=== PATIENT | male | born 1945 | race Caucasian/White ===

== ENCOUNTER → 2017-05-01 | Outpatient (CLI) | payer BC ==
[~2017-05-01] MED LIST: ASPCH81 PO; CHOL1000 PO; GADAVIST IV PRN; PSYL55.43 PO; TADA5TAB11 PO; WLC625 PO
--- NOTE | 2017-05-01 08:53 | DIAGNOSTIC IMAGING REPORT ---
MRI OF THE BRAIN AND IACS WITHOUT AND WITH IV CONTRAST CLINICAL HISTORY: Sensorineural hearing loss. Tinnitus. Right ear pain. Imbalance. Dizziness. COMPARISON STUDY: July 05, 2009 TECHNIQUE: MRI of the brain was performed from the vertex to the skull base utilizing various T1 and T2 weighted sequences. Following the IV administration of 9 mL of Gadavist contrast, additional enhanced images were obtained. FINDINGS: Sagittal T1, axial diffusion, proton density and T2 weighted axial, coronal FLAIR, and pre and post axial T1-weighted images were acquired. These were supplemented with post gadolinium coronal T1 weighted images. No intra or extra-axial mass lesions are visualized. Axial diffusion-weighted images reveal no evidence of acute or subacute infarction. There is no evidence of ventricular dilatation. Proton density T2-weighted and FLAIR images reveal no significant foci of increased T2 signal. There are no abnormal flow voids. There is no evidence of pathologic enhancement. The saphenous nerve complexes appear normal bilaterally. No cerebellopontine angle masses are evident. IMPRESSION: Normal MRI of the brain for age. Electronically signed by: Godfrey Kendall M.D. 05/01/2017 8:52 AM Dictated Date/Time: 05/01/2017 8:49 AM
== END | disposition home or self-care (01) ==
LOC: C.MRIBC 07:39
PROVIDERS: ATTEND Physician Assistant
DX: H93.19 Tinnitus, unspecified ear (principal); H90.3 Sensorineural hearing loss, bilateral; R42 Dizziness and giddiness

== ENCOUNTER → 2017-06-02 | Outpatient (CLI) | payer BC ==
[~2017-06-02] MED LIST changes: -GADAVIST IV PRN
[2017-06-02 13:04] LABS: BASO % 0.4 %; BASO ABS # 0.02 K/uL (0-0.2); EOS % 2.4 %; EOS ABS # 0.12 K/uL (0-0.5); HEMATOCRIT 44.2 % (42-52); HEMOGLOBIN 14.5 g/dL (14.0-18.0); IG# 0.01 K/uL (0.00-0.02); LYMPH % 26.4 %; LYMPH ABS # 1.34 K/uL (1.2-3.4); MEAN CELL VOLUME 95.5 fL (80-100); MEAN CORPUSCULAR HEMOGLOBIN 31.3 pg (25-34); MEAN CORPUSCULAR HGB CONC 32.8 g/dl (32-36); MEAN PLATELET VOLUME 11.3 fL (7.4-10.4); MONO % 10.2 %; MONO ABS # 0.52 K/uL (0.11-0.59); NEUT % 60.4 %; NEUT ABS # 3.07 K/uL (1.4-6.5); PLATELET COUNT 203 K/uL (130-400); RED CELL DISTRIBUTION WIDTH CV 13.7 % (11.5-14.5); RED CELL DISTRIBUTION WIDTH SD 47.4 fL (36.4-46.3); WHITE BLOOD COUNT 5.08 K/uL (4.8-10.8)
[2017-06-02 13:17] LABS: ALBUMIN 3.3 gm/dl (3.4-5.0); ALT/SGPT 24 U/L (12-78); AST/SGOT 17 U/L (15-37); BLOOD UREA NITROGEN 19 mg/dl (7-18); CALCIUM 8.9 mg/dl (8.5-10.1); CARBON DIOXIDE 31 mmol/L (21-32); CREATININE 1.06 mg/dl (0.60-1.40); GLUCOSE 81 mg/dl (70-99); LIPASE 203 U/L (73-393); POTASSIUM 4.2 mmol/L (3.5-5.1); SODIUM 140 mmol/L (136-145)
[2017-06-02 13:18] LABS: ALKALINE PHOSPHATASE 367 U/L (45-117)
== END | disposition home or self-care (01) ==
LOC: C.LAB1850 10:58
PROVIDERS: ATTEND Internal Medicine
DX: R10.9 Unspecified abdominal pain (principal)

== ENCOUNTER → 2017-06-03 | Outpatient (CLI) | payer BC | END | disposition home or self-care (01) | LOC: C.LAB 09:04 | PROVIDERS: ATTEND Internal Medicine | DX: R10.9 Unspecified abdominal pain (principal) ==

== ENCOUNTER → 2017-09-21 | Outpatient (CLI) | payer BC | END | disposition home or self-care (01) | LOC: C.LAB1850 15:55 | PROVIDERS: ATTEND Urology | DX: N20.0 Calculus of kidney (principal) ==

== ENCOUNTER → 2017-12-27 | Outpatient (CLI) | payer BC ==
--- NOTE | 2017-12-27 16:12 | DIAGNOSTIC IMAGING REPORT ---
R HAND MIN 3 VIEWS ROUTINE CLINICAL HISTORY: Right hand pain. First metacarpal injury. COMPARISON: None FINDINGS: Alignment of the right hand is anatomic. No acute fracture is identified. Carpal bones appear intact. There is mild joint space narrowing and osteophytosis within several articulations of the right hand. IMPRESSION: No acute fracture or dislocation within the right hand. Electronically signed by: Declan Aguero M.D. 12/27/2017 4:10 PM Dictated Date/Time: 12/27/2017 4:08 PM
== END | disposition home or self-care (01) ==
LOC: C.LAB1850 16:01
PROVIDERS: ATTEND Physician Assistant
DX: M79.641 Pain in right hand (principal)

== ENCOUNTER 2024-02-26 05:11 | Observation (INO) ==
--- NOTE | 2024-01-09 11:42 | PAT Medication Instructions ---
Medication Instructions Date of Service January 09, 2024 Home Medications psyllium husk (aspartame) 3.4 gram oral powder packet (Metamucil Fiber Singles) 1 packet PO QDL [id number]-hmewmre 36,000-114,000-180,000 unit capsule,delay rel (Creon) 1 cap PO TIDM calcium carbonate 600 mg PO QPM cholecalciferol (vitamin D3) 25 mcg (1,000 unit) capsule 2,000 unit PO QPM aspirin 81 mg tablet,delayed release (Adult Aspirin Regimen) 81 mg PO QAM vibegron 75 mg tablet (Gemtesa) 75 mg PO QPM tadalafil 5 mg tablet (Cialis) 5 mg PO DAILY MEDICATION INSTRUCTIONS: ASK your prescriber and surgeon aspirin 81 mg tablet,delayed release (Adult Aspirin Regimen) 81 mg PO QAM DO NOT take the morning of surgery psyllium husk (aspartame) 3.4 gram oral powder packet (Metamucil Fiber Singles) 1 packet PO QDL kkctgd-sqyumysy-ykvryzw 36,000-114,000-180,000 unit capsule,delay rel (Creon) 1 cap PO TIDM Take morning of surgery With a small sip of water, OTHERWISE NOTHING TO EAT OR DRINK AFTER MIDNIGHT: tadalafil 5 mg tablet (Cialis) 5 mg PO DAILY Take evening before surgery calcium carbonate 600 mg PO QPM cholecalciferol (vitamin D3) 25 mcg (1,000 unit) capsule 2,000 unit PO QPM bsrnyd-gctgtfwo-sgbewzf 36,000-114,000-180,000 unit capsule,delay rel (Creon) 1 cap PO TIDM vibegron 75 mg tablet (Gemtesa) 75 mg PO QPM Other Notes If you have any questions please call us at [phone] or [phone] or [phone] or [phone]
--- NOTE | 2024-01-21 10:33 | Anesthesiology Consultation ---
Date of Service January 21, 2024 Assessment & Plan (1) Encounter for pre-operative examination: - Infectious disease screening: Per assessment on 01/07/24: No known recent infectious disease contacts or current infectious disease symptoms. - Outpatient joint assessment: Pt currently scheduled for inpatient pathway. If surgeon requests review for outpatient joint pathway, patient is not recommended candidate for outpatient joint program from anesthesia standpoint based on available information. - Vascular surgery visit (08/29/23): "Patient has now had a secondary episode of superficial thrombosis phlebitis, although this is in the same area as the previous episode.. We did discuss with the patient that taking 81 mg of aspirin daily may be beneficial as a preventative method. He did state that he has upcoming right shoulder surgery and will have his arm in a sling for a number of weeks.. Due to this, we recommend that he consider a zippered compression stocking.. Patient was advised to call our office if he should develop significant pain and discomfort despite wearing his compression daily and we will be able to consider him for surgical intervention on his varicose veins" - Cardiology visit (08/30/23): "Palpitations: His palpitations have been recorded using a 1 week monitor and he did confirm that we do have recordings of his symptoms. They appear to be due to PAT or premature beats, neither of which is very concerning. We have no evidence that he has atrial fibrillation. I not would pursue further evaluation and I do not think treatment is necessary. If he needs treatment for this in the future (to control symptoms) we could use beta-blockers or calcium blockers but I would prefer not.. Chest pain: He has a quite atypical chest pain which is nonexertional (despite him being able to exert himself quite well at other times) and therefore I do not think evaluation for coronary artery disease is worthwhile. His echocardiogram and electrocardiogram are normal.. Dizziness: He does have intermittent dizziness which sounds orthostatic and appears to have been worsened by his prostate medications, which can occur with many of them. He is on no other medications to cause this. At the moment this does not seem to be much of an issue on his current regimen and I do not think we need to pursue evaluation. If it becomes more of an issue we could do a tilt test to document orthostasis but since he is feeling relatively well now I have not done that. I do not see any reason why he cannot undergo his planned urologic procedure without further testing.. Follow Up: As needed" - S/P TURP (09/11/23): LMA#4 iGel at [facility] - S/P Right shoulder arthroscopy (11/02/23): LMA#4 igel [place] [facility] [place] acceptable risk for surgery pending surgeon-ordered PCP ([facility] [place]03[place] and cardiology ([facility] [place]) preop evaluations. Chart Review Chart Review: Patient seen in Pre Admission Testing Teaching & Discussion Pre-Anesthesia Teaching/Discussion Notes: Instructed NPO after midnight before surgery,except medications with 15 cc of water. Medication instructions provided according to the PAT guidelines. History Surgery Operation Date: 02/26/24 10:05 Proposed Procedures p Left Total Knee Arthroplasty - Lenny Bhavik Claros MD Height/Weight Height: 6 ft 4 in Weight: 83.9 kg Allergies Allergy/AdvReac Type Severity Reaction Status Date / Time ciprofloxacin Allergy Severe Tremors Verified 01/07/24 11:45 lactose Allergy Intermediate Diarrhea Verified 01/07/24 11:45 alfuzosin AdvReac Severe syncope Verified 01/07/24 11:45 Medications Home Medications Medication Instructions Recorded Confirmed Last Taken psyllium husk (aspartame) 3.4 gram 1 packet PO QDL ##0 12/21/15 01/07/24 11/01/23 oral powder packet (Metamucil Fiber Singles) [id number]-idpdooug-[id number] 1 cap PO TIDM 05/11/19 01/07/24 11/01/23 36,000-114,000-180,000 unit capsule,delay rel (Creon) calcium carbonate 600 mg PO QPM 03/17/22 01/07/24 11/01/23 cholecalciferol (vitamin D3) 25 2,000 unit PO QPM #0 tabs 10/19/22 01/07/24 mcg (1,000 unit) capsule aspirin 81 mg tablet,delayed 81 mg PO QAM preventative 08/30/23 01/07/24 11/01/23 release (Adult Aspirin Regimen) vibegron 75 mg tablet (Gemtesa) 75 mg PO QPM 01/01/24 01/07/24 Unknown tadalafil 5 mg tablet (Cialis) 5 mg PO HS 01/07/24 01/21/24 Unknown Past Medical History Medical History (Updated 01/18/24 @ 10:15 by Jessie Parker) Alkaline phosphatase elevation Chronic, since approximately age 21 BPH (benign prostatic hyperplasia) Hearing deficit History of jaundice as a child History of kidney stones passed on own Pancreatic insufficiency Follows with Dr. Adam Hull [facility] Sleep apnea No device Superficial thrombosis of left lower extremity Wears compression stockings Follows with [facility] vascular Reason for ASA 81mg Exercise / Class Metabolic Activity II 4-5 Yardwork/Stairs/Walk up hill Past Family History Family History Mother Myocardial infarction Father Myocardial infarction Hypertension Brother Asthma Other Heart disease No family history of adverse response to anesthesia Denies family history of Ovarian cancer Prostate cancer Breast cancer Colorectal cancer Past Surgical History Surgical History (Updated 01/18/24 @ 10:15 by Jessie Parker) H/O hammer toe correction bilateral, done with bunionectomy surgery History of anal fistulotomy [place]2 [facility] [place] History of arthroscopy Left knee x2 Meniscus Tear History of arthroscopy of right shoulder Right shoulder arthroscopy (11/02/23): [place] [facility] [place] of bunionectomy bilateral History of cataract surgery Bilateral History of colonoscopy Nausea and vomiting after administration of anesthetic agent S/P cholecystectomy S/P TURP (08/2023) S/P vasectomy Status post replacement of right shoulder joint Past Anesthesia History No Hx of Anesthesia Complications and No Family Hx of Anesthesia Complications History of PONV No Hx of Motion Sickness and History of PONV (Remote hx) Social History Smoking Status: Never smoker Do You Dip or Chew Tobacco: No Hx Alcohol Use: No Alcohol type: wine alcohol intake frequency: a few times a month Hx Substance Use: No substance use type: does not use Review of Systems Patient denies chest pain, shortness of breath, dyspnea on exertion, fever, chills, cough, wheezing, palpitations. Physical Exam Vital Signs BP 139/80 P 64 TEMP 97.6 SP02 100%RA RESP 16 Physical Full cervical extension range of motion. Full TMJ range of motion. TMD III finger breaths Mallampati Score I Dentition: intact, upper front left bridge Lungs: clear throughout to auscultation Cardiac: regular rate and rhythm, no murmurs noted Spine: normal Carotid arteries: negative bruit Extremities: no LE edema Lab Results Anesthesia Preop Results Results Anesthesia Widget: WBC 6.12 K/ul (4.8-10.8) 01/21/24 Hgb 14.0 g/dl (14.0-18.0) 01/21/24 Hct 43.8 % (42.0-52.0) 01/21/24 Plt 203 K/uL (130-400) 01/21/24 Na 142 mmol/L (136-145) 01/21/24 K 4.5 mmol/L (3.5-5.1) 01/21/24 Cl 105 mmol/L (98-107) 01/21/24 CO2 34 mmol/L (21-32) H 01/21/24 BUN 20 mg/dl (6-23) 01/21/24 Creat 0.92 mg/dl (0.6-1.4) 01/21/24 Glucose Level 96 mg/dl (70-99(Fasting)) 01/21/24 PT 10.0 Seconds (9.0-12.0) 01/21/24 PTT 24 Seconds (21-31) 01/21/24 INR 0.9 (0.9-1.1) 01/21/24 Urine Color Yellow 01/21/24 Urine Appearance Clear (Clear) 01/21/24 Urine pH 6.0 (4.5-7.5) 01/21/24 Urine Specific [place] 1.014 (1.000-1.030) 01/21/24 Urine Protein Negative (Negative) 01/21/24 Urine Glucose (UA) Negative (Negative) 01/21/24 Urine Ketones Negative (Negative) 01/21/24 Urine Blood Negative (Negative) 01/21/24 Urine Nitrite Negative (Negative) 01/21/24 Urine Bilirubin Negative (Negative) 01/21/24 Urine Urobilinogen Negative (Negative) 01/21/24 Urine Leukocyte Esterase Negative (Negative) 01/21/24 Blood Type A Positive 01/21/24 Antibody Screen NEGATIVE 01/21/24 Testing Electrocardiogram Date: 08/30/23 Findings: + NSR @ (75) Chest X-Ray Date: 08/02/23 FINDINGS: Lung volumes are normal. There is no consolidation to suggest pneumonia. Symmetric biapical densities favor scarring. There is no pneumothorax or pleural effusion. Cardiac size is normal. Mediastinal contours are normal. There is no evidence for pulmonary edema. IMPRESSION: No acute cardiopulmonary findings. Echocardiogram Date: 06/27/23 EF 55 to 60%. No regional wall motion abnormality. Borderline concentric LVH. No significant valvular disease.
[2024-02-26] MEDS: LR 500ML BOLUS, THEN 15ML/HR IV SCH (05:52)
[2024-02-26] MEDS: LR 15ML/HR IV SCH (05:54)
[2024-02-26] MEDS: LR 60ML/HR IV SCH (05:54)
[2024-02-26] MEDS: ACETAMINOPHEN 500 MG TAB PO SCH ×2 (06:00→15:38)
[2024-02-26] MEDS: Scopolamine 1 MG TDSY TD SCH (06:00)
[2024-02-26] MEDS: CeleBREX 200 MG CAP PO SCH (06:01)
[2024-02-26] MEDS ORDERED: ROPIVACAINE 0.5% 5 MG/ML 30 ML VIAL ONE (06:19)
[2024-02-26] MEDS ORDERED: BUPIVACAINE 0.5 % 5 MG/1 ML PF 10ML VIAL ONE (06:19)
[2024-02-26] MEDS ORDERED: MIDAZOLAM HCL 1 MG/ML 2ML VIAL ONE (06:25)
[2024-02-26] MEDS ORDERED: PROPOFOL IV EMULSION 10 MG/ML 20 ML VIAL IV ONE ×4 (06:25→07:51)
--- NOTE | 2024-02-26 06:34 | History & Physical Bridge Note ---
Date of Service February 26, 2024 History & Physical Bridge Note I have examined the patient, reviewed the History & Physical and in the interval since the performance of the History & Physical I have noted the following changes of clinical significance: no changes noted
[2024-02-26] MEDS ORDERED: fentaNYL citrate PF 100 MCG/2 ML VIAL IV PRN (06:43)
[2024-02-26] MEDS ORDERED: ePHEDrine sulfate 50 MG/ML AMP IV PRN (06:43)
[2024-02-26] MEDS ORDERED: HYDROmorphone INJ 1 MG/ML SYRINGE IV PRN (06:43)
[2024-02-26] MEDS ORDERED: ONDANSETRON INJ 2 MG/ML 2 ML VIAL IV PRN (06:43)
[2024-02-26] MEDS ORDERED: ATROPINE SULFATE 0.1 MG/ML 10ML SYR IV PRN (06:43)
[2024-02-26] MEDS: TRANEXAMIC ACID 1,000 MG **IV Pre-op IV SCH (06:48)
[2024-02-26] MEDS ORDERED: fentaNYL citrate PF 100 MCG/2 ML VIAL ONE (07:18)
[2024-02-26] MEDS: ceFAZolin 2000MG 2,000 MG/15 ML SYR IV SCH ×2 (07:25→16:49)
[2024-02-26] MEDS: ROPIV 0.5% 246mg, Ketorolac 30mg, EPINEPHrine 0.5mg in NSS INFIL SCH (07:41)
[2024-02-26] MEDS: ORTHO JOINT ANESTHETIC ONE (07:41)
[2024-02-26] MEDS: TRANEXAMIC ACID 1,000 MG **IV Intra-op IV SCH (08:51)
[2024-02-26] MEDS ORDERED: DEXAMETHASONE SOD INJ 4 MG/ML VIAL ONE (09:16)
--- NOTE | 2024-02-26 09:19 | Operative Report ---
Post Operative Report Pre & Post Diagnosis Operation Date: 02/26/24 07:00 Pre-Op Diagnosis: Left Knee Osteoarthritis Post-Op Diagnosis: Left Knee Osteoarthritis I identified the patient and participated in the time-out.: Yes Procedure Operation Date: 02/26/24 07:00 Actual Procedures p [Left] Total knee replacement, imageless computer assisted navigation (Left) - Lenny Claros MD Surgeon Lenny Clarso MD Ab Initio Etl Developer Margaret Hurtado PA-C Estimated Blood Loss 50 Findings See Below Examined Under Anesthesia: ROM -- There was 5 degrees to 125 degrees of flexion Ligamentous examination -- revealed stable Elier, posterior drawer, varus and valgus stress at 5 and 30 degrees. Outerbridge Grade IV changes of Medial compartment with wrgy-jf-hieo with erosion of the medial tibial plateau, grade III changes Patellofemoral compartment, and grade II changes lateral compartment with marginal osteophytes. Fluids 1200 cc Specimens left knee contents Anesthesia Type MAC Spinal Regional Complications none Indications This is a 78-year-old male who has clinical and radiographic findings consistent with osteoarthritis of the a left knee. I recommended that a left total knee replacement be performed. The patient understands the risks of surgery, which include but not limited to: bleeding, infection, re-operation, damage to nerves and arteries, continued knee pain, knee stiffness, DVT, and . The patient understands all these instructions and explanations, all his questions have been satisfactorily addressed and the patient has elected to proceed. Informed consent was signed. Description of Procedure IMPLANTS: 1. Femur: Triathlon #8 Left PS. 2. Tibia: Triathlon #7 Harrell. 3. Insert: Triathlon #7 x 11 mm PS X3 poly. 4. Patella: Triathlon A38 x 11 mm X3 poly. 5.Palacos cement. Margaret Hurtado PA-C is assisting with positioning, retracting, and closure due to fellow not available. Procedure: The patient was taken to the Operating Room and placed in the supine position after spinal and adductor canal nerve block was administered. My initials and a multidisciplinary time-out were used to identify the left leg as the correct operative limb. A tourniquet was placed high in the thigh. Prior to the incision, 2 grams of intravenous Ancef were given. One g of TXA was given pre- operatively and another after the tourniquet was released. The left leg was then prepped and draped in a standard sterile fashion. An Esmarch was used to exsanguinate the leg and the tourniquet was inflated to 250 mmHg. The planned mid-line 20 cm incision was created exposing the extensor mechanism. The medial parapatellar arthrotomy was made and the patella was everted. The patella was addressed first. It was prepared by reaming from 27 mm down to 16 mm. An A38 button was found to fit best. The peg holes were made in the standard fashion. The femur was addressed next and using computer assisted OrthoAlign with 3 degrees of flexion and 0 degrees of valgus, removing 10 mm in the standard fashion for the distal cut. The cut was made and the 4-in-1 cutting block for a size 8 femur was placed. These cuts and the cuts to place the box were made in the standard fashion. Our attention was then drawn to the tibia cut with using imageless computer assisted OrthoAlign, taking 2 mm from the medial low side. There was sufficient extension and flexion gap to fit a 11 mm spacer. A #7 Tibial baseplate fit well. A trial with a 11 mm spacer showed excellent stability in both flexion and extension, with good ligament balance, and thumbs free patellar tracking. Range of motion of 0-130 degrees. The tibial baseplate was prepped for the keel and stem. All components were removed. 90 ml of total knee cocktail were injected into the soft tissues and periosteum. All surfaces were copiously irrigated prior to placement of the components. The femoral component followed by Tibial baseplate were cemented in place and a 11mm trial placed. Next, the patellar button was placed using the same cement. Once the cement had cured, the range of motion and stability were unchanged. The 11 mm X3 poly was placed. Again, the range of motion and stability were unchanged. The tourniquet was deflated. Hemostasis was obtained. Another 1 g of TXA was given. The extensor mechanism was closed with 1-0 Vicryl and 0 Stratafix with the knee bent approximately 60 degrees in a standard fashion. The peritenon and deep fascia was closed with 2-0 Vicryl. The subcutaneous layer was closed with 3-0 Vicryl. The skin was closed with Zipline and shield. The limb was cleaned and dried. 4x4 dressing was placed over top followed by ABDs, sterile Webril, and a foot to thigh Dominic bandage. The patient was then transferred to the Recovery Room in stable condition. The sponge and needle counts were correct. POST-OP INSTRUCTIONS: The patient will be WBAT. The patient will be admitted to the hospital. Complete 24-hour course antibiotics. Labs will be obtained during the stay. DVT prophylaxis will included aspirin for 6 weeks, TEDs, and mechanical foot pumps. The dressing will be changed postop day #2-3 and covered with a Silverlon dressing. I attest to the content of the Intraoperative Record and any orders documented therein. Any exceptions are noted below.
--- NOTE | 2024-02-26 09:19 | Post Operative Brief Note ---
Immediate Post Op Note Date of Surgery February 26, 2024 Pre & Post Diagnosis Operation Date: 02/26/24 07:00 Pre-Op Diagnosis: Left Knee Osteoarthritis Post-Op Diagnosis: Left Knee Osteoarthritis I identified the patient and participated in the time-out.: Yes Procedure Operation Date: 02/26/24 07:00 Actual Procedures p Left Total Knee Arthroplasty(Left) - Lenny Claros MD Surgeon Lenny Claros MD Test Fixture Designer Margaret Hurtado PA-C Estimated Blood Loss 50 Findings Consistent with Post-Op Diagnosis Fluids 1200 cc Specimens left knee contents Anesthesia Type MAC Spinal Regional Complications none
--- NOTE | 2024-02-26 10:23 | XRay Report ---
XR knee LT 1 or 2V routine CLINICAL HISTORY: Postoperative evaluation COMPARISON: Left knee radiographs November 22, 2021. FINDINGS: Alignment of the total left knee arthroplasty is anatomic. There is no periprosthetic frac ture or unexpected radiopaque foreign body. IMPRESSION: Expected findings following total left knee arthroplasty. ACT 112: Negative or not required by law. Electronically signed by: Declan Aguero M.D. 02/26/2024 10:21 AM
[2024-02-26] MEDS ORDERED: TAMSULOSIN HCL 0.4 MG CAP PO PRN (10:32)
[2024-02-26] MEDS ORDERED: NALOXONE HCL 0.4 MG/1 ML VIAL/CARP IV PRN (10:32)
[2024-02-26] MEDS ORDERED: METOCLOPRAMIDE HCL INJ 5 MG/ML 2 ML VIAL IV PRN (10:32)
[2024-02-26] MEDS ORDERED: MAGNESIUM HYDROXIDE SUSP 30 ML UDC PO PRN (10:32)
[2024-02-26] MEDS ORDERED: bisacodyL 10 MG SUPP PR PRN (10:32)
[2024-02-26] MEDS: PANCREAZE (LIPASE 10,500U) CAP PO SCH (11:34)
[2024-02-26] MEDS: ONDANSETRON INJ 2 MG/ML 2 ML VIAL IV PRN (11:34)
[2024-02-26] MEDS: PSYLLIUM or GUAR GUM FIBER 4GM PACKET PO SCH (11:34)
[2024-02-26] MEDS: SODIUM CHLORIDE 0.9% 1,000 ML IV SCH (11:34)
--- NOTE | 2024-02-26 11:45 | Anesthesiology Progress Note ---
Date of Service February 26, 2024 Anesthesia Post Procedure Vital Signs Vital Signs: Temp Pulse Pulse Resp BP Pulse Ox O2 Del Method 02/26/24 11:25 36.5 C 57 L 16 108/66 99 Room Air 02/26/24 10:55 36.3 C L 62 20 113/70 98 Room Air 02/26/24 10:25 Room Air 02/26/24 10:25 37.5 C 62 20 116/76 98 Room Air 02/26/24 10:15 36.4 C L 64 19 108/64 100 Room Air 02/26/24 10:00 66 20 111/68 98 Room Air 02/26/24 09:50 62 19 110/62 96 Room Air 02/26/24 09:40 58 L 19 110/68 97 Room Air 02/26/24 09:32 36.3 C L 62 15 109/68 100 Room Air 02/26/24 05:36 36.8 C 80 18 146/92 H 98 Room Air Transfer of Care Handoff Completed per policy Notes Mental Status: alert / awake / arousable and participated in evaluation Patient Amnestic to Procedure: Yes Nausea / Vomiting: adequately controlled Pain: adequately controlled Airway Patency, RR, SpO2: stable & adequate BP & HR: stable & adequate Hydration State: stable & adequate Neuraxial Anesthesia: was administered and sensory block is resolving Anesthetic Complications: no major complications apparent and Pt Satisfied with anesthetic care
--- NOTE | 2024-02-26 12:35 | Orthopedic Progress Note ---
Date of Service February 26, 2024 Assessment & Plan (1) Left knee DJD: Plan: POD #0 s/p L TKA, doing as well as expected. Resume diet. WBAT with walker, once the spinal wears off. OOB to chair. Continue pain control. Check labs tomorrow. DVT prophylaxis: TEDs 3 weeks, foot pumps while in hospital, ASA 81 mg BID for 6 weeks. PT/OT. Complete Abx. D/C planning. Dressing to be changed POD 2-3 to Silverlon type dressing. Present on Admission?: Yes Admission and Anticipated Discharge Date Admission Date: February 26, 2024 Subjective Feeling ok Physical Exam Physical Exam: LLE: Block is still in affect. No sensation to light touch, unable to wiggle toes or ankle. Calf is soft and non-tender. Dressing is clean, dry, intact. Results & Data Vital Signs (Past 12 Hours) Vital Signs Temp Pulse Pulse Resp BP Pulse Ox O2 Del Method 02/26/24 11:25 36.5 C 57 L 16 108/66 99 Room Air 02/26/24 10:55 36.3 C L 62 20 113/70 98 Room Air 02/26/24 10:25 Room Air 02/26/24 10:25 37.5 C 62 20 116/76 98 Room Air 02/26/24 10:15 36.4 C L 64 19 108/64 100 Room Air 02/26/24 10:00 66 20 111/68 98 Room Air 02/26/24 09:50 62 19 110/62 96 Room Air 02/26/24 09:40 58 L 19 110/68 97 Room Air 02/26/24 09:32 36.3 C L 62 15 109/68 100 Room Air 02/26/24 05:36 36.8 C 80 18 146/92 H 98 Room Air Diagnostic Findings XR knee LT 1 or 2V routine CLINICAL HISTORY: Postoperative evaluation COMPARISON: Left knee radiographs November 22, 2021. FINDINGS: Alignment of the total left knee arthroplasty is anatomic. There is no periprosthetic fracture or unexpected radiopaque foreign body. IMPRESSION: Expected findings following total left knee arthroplasty. ACT 112: Negative or not required by law. Electronically signed by: Declan Aguero M.D. 02/26/2024 10:21 AM (1) Left knee DJD Osteoarthritis type: primary Qualified Code(s): M17.12 - Unilateral primary osteoarthritis, left knee
[2024-02-26] MEDS: Scopolamine CHECK PATCH PLACEMENT SCH (16:01)
[2024-02-26] MEDS: ASCORBIC ACID 500 MG TAB PO SCH (16:47)
[2024-02-26] MEDS: FERROUS GLUCONATE 324 MG TAB PO SCH (16:48)
[2024-02-26] MEDS: VIBEGRON 75 MG TAB PO SCH (20:05)
[2024-02-26] MEDS: CHOLECALCIFEROL 25 MCG (1000 UNITS) TAB PO SCH (20:05)
[2024-02-26] MEDS: CALCIUM CARBONATE 1250MG TAB PO SCH (20:05)
[2024-02-26] MEDS: DOCUSATE SODIUM 100 MG CAP PO SCH (20:07)
[2024-02-26] MEDS: oxyCODONE HCL IR 5 MG TAB (IMMEDIATE RELEASE) PO PRN (21:41)
[2024-02-27] MEDS: HYDROmorphone INJ 0.5 MG/0.5 ML SYR IV PRN (03:13)
[2024-02-27] MEDS: diphenhydrAMINE Capsule 25 MG CAP PO PRN (05:36)
[2024-02-27 07:10] LABS: Hematocrit (blood only) 36.4 % (42.0-52.0); Hemoglobin 11.8 g/dl (14.0-18.0); Mean Corpuscular Hemoglobin 29.7 pg (25.0-34.0); Mean Corpuscular Hgb Conc 32.4 g/dL (32.0-36.0); Mean Corpuscular Volume 91.7 fL (80.0-100.0); Mean Platelet Volume 10.7 fL (9.4-12.4); Platelet Count 167 K/uL (130-400); RDW Coefficient of Variation 13.8 % (11.5-14.5); RDW Standard Deviation 46.4 fL (36.4-46.3); Red Blood Count 3.97 M/uL (4.70-6.10); White Blood Count 7.95 K/ul (4.8-10.8)
[2024-02-27 07:28] LABS: BUN Creatinine Ratio 15.4 (10-20); Calcium 8.1 mg/dl (8.6-10.3); Creatinine Clr Calc Pharmacy 79.7 ml/min; Potassium 4.5 mmol/L (3.5-5.1)
[2024-02-27] MEDS: ASPIRIN 81 MG ECTAB PO SCH (08:01)
[2024-02-27] MEDS: MULTIVITAMIN TAB PO SCH (08:01)
[2024-02-27 08:14] VITALS: BP 134/78; RESP 20; TEMP 98.6; O2SAT 98
--- NOTE | 2024-02-27 11:29 | Discharge Summary ---
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 Claros on February 26, 2024. His s urgery was performed with spinal anesthesia, peripheral nerve block and IV sedation. He was given 2 g of IV Ancef which was continued for 24 hours postoperatively. He was given 1 g of IV TXA preoperatively and 1 g of IV TXA intraoperatively for bleeding prophylaxis. X-rays performed in the recovery room shows a stable left knee prosthesis without any evidence of hardware failure or fracture. He was allowed out of bed, weight-bear as tolerated on the left lower extremity with the assistance of a walker. His vital signs remained stable during his inpatient stay. He did have blood work on postoperative day 1 which showed a mild anemia hemoglobin 11.8 and mild hypocalcemia 8.1. He is passing urine. His home medications were also continued while under observation. He was given Tylenol, oxycodone and IV morphine as needed for pain control overnight and on post op day #1. He was also given FRANCISCO JAVIER stockings to wear for 3 weeks after surgery, and AV impulse boots while in the hospital for DVT prophylaxis. Aspirin 81 mg twice daily for DVT prophylaxis. He was seen and evaluated by physical therapy as well as Occupational Therapy. He did well out of bed with physical therapy and Occupational Therapy on postoperative day 1. His dressings were kept in place. He will follow-up as scheduled on postoperative day 2 for a dressing change as an outpatient. He was deemed safe for discharge to his home and was discharged to his home in stable condition on February 27, 2024. He will go home with home health. This was arranged preoperatively. Discharge instructions were reviewed. All questions were answered. Total Time Total Time Spent Total Time Spent (In Minutes): 30 minutes Discharge Plan Discharge Items Patient Disposition: Home - Home Health Services Reason For Visit: Left Knee Osteoarthritis Discharge Diagnosis: Left knee osteoarthritis, s/p left total knee arthroplasty Condition on Discharge: Good Activity: Per Instructions section Weightbearing: Full weightbearing Weightbearing Comment: with walker Non-emergency contact: Surgeon Call non-emergency contact if: your pain is not controlled, you have a fever, your temperature is above 101 and your wound has increased drainage Follow-up/Referrals: Janette Strickland MD [Primary Care Provider] - Lenny Claros MD [Physician] - 02/28/24 10:45 am Diet: Regular Addtl Attending Provider Instructions: POST OPERATIVE DISCHARGE INSTRUCTIONS Pain Control Please take the follow medications for pain control, as well as icing and elevating your operative extremity. Pain after surgery is to be expected. We may not be able to take away all of your pain, but the goal is to make your pain manageable - Extra strength Tylenol 1,000mg (2 tabs) every 8 hours - Oxycodone 5-10mg (1-2tabs) every 4-6 hours as needed DVT Prophylaxis With any surgery, you are at increased risk for blood clots. Please take the follow measures to prevent blood clots and read the warning signs to watch for. Please take the follow anticoagulant: Aspirin 81mg twice a day for 6 weeks If you were given FRANCISCO JAVIER compression stockings, these are to be worn on both legs for 18-20 hours daily for 2 weeks, or for 3 weeks for any lower extremity surgery. Warning signs: Calf pain, lower extremity swelling, numbness/tingling, skin discoloration, increased pain, shortness of breath, chest pain. Please contact our office if you experience any of these symptoms or call 911 if you are having trouble breathing. Ice Ice your operative site at least 5 times a day for 15-30 minutes at a time, for the first three days, then as needed. This will help to reduce swelling and pain. Make sure you have a thin cloth between the ice or cooling unit and your skin to prevent powell bite. This is especially important if you received a nerve block. Diet/Nausea/Vomiting Start by drinking clear liquids and eating crackers. If you can tolerate this, then you may resume your normal diet. If you feel nauseated or vomit, take Zofran/ondansetron (if prescribed). Please call our office if you have intractable nausea or vomiting, or, if after hours, you may go to the Emergency Room for help. Surgical Dressing Please leave on any dressing until you are seen by either PT or PA for your post-operative appointment, unless you are otherwise instructed. If there are any issues with your dressing please give our office a call. Weight bearing, Range of Motion, Activity You will be weight bearing as tolerated on your operative site. you may use crutches or walker to assist in ambulation. Physical therapy You will do your rehab for the first two weeks with home health. Then you will begin outpatient physical therapy. It is very important you follow your rehab protocol and do your exercises as instructed by your provider and physical therapist. Wound care and showering We will inspect your wound at your first post-operative visit. It is normal to see some dried blood on the dressing. Do not remove your dressing, paper strips or sutures yourself unless otherwise instructed. Showering is allowed post op day 3. Do not scrub or remove any dressings, unless you are otherwise instructed. Once your dressing is changed in the office to the water-resistant dressing. You can shower with this on as long as all the edges are in tact. To promote wound healing, we recommend taking a multi-vitamin, or taking 500mg Vitamin C supplement twice a day for two weeks and 325mg Iron supplement twice a day for two weeks. Constipation Constipation is a common side effect of narcotic pain medication, dehydration after surgery and iron supplement (if you were instructed to begin that after surgery). We recommend purchasing an cifz-tqe-lwazilk laxative such as Milk of Magnesia, Colace, Dulcolax, Miralax or Senna from a local pharmacy, and taking it as instructed. Stay hydrated and you may increase your fiber in your diet as well. Call our clinic if any questions. Driving You may not drive while taking narcotic pain medication or while in a cast, splint, sling or brace. Driving will be discussed at your first post op appointment Return to Work Your return to work depends on what surgery was done and what type of work you do. Please bring any paperwork your employer needs completed to your first post-operative visit. Also, bring a description of your job duties, as this helps us to understand what risks you may face at work. Travel Avoid long distance travel (greater than 1 hour) in airplanes and cars for the first 6 weeks after surgery. Follow-up Please attend your post operative appointments as scheduled. At these appointments, we may do dressing change and remove any sutures/pino/Zip-line 10-14 days after your surgery. If you do not know your post operative appointment dates or times please call the office at [phone] When to call the office It is normal to have swelling and bruising in the limb that was operated on. This will improve with time. It is also normal to have fevers for the first 2 days after surgery. Reasons you should call your doctor include: Uncontrolled pain; Nausea, vomiting, or constipation that does not improve with medication; Fevers over 101.5, chills, sweats; Drainage or bleeding from the wound; Foul odor; Spreading areas of redness; calf pain or swelling, shortness of breath, chest pain; Any other concerns You may call the office at [phone]. If it is a medical emergency please call 911. Pending Studies at Discharge: Yes Studies:: Left knee bone and tissue Stand-Alone Forms: [facility], Smoking Cessation Medications and DC Order Prescriptions: New aspirin 81 mg Tablet,Delayed Release (Dr/Ec) 81 mg PO BID Qty: 30 0RF acetaminophen [Tylenol Extra Strength] 500 mg Tablet 1,000 mg PO Q8 Qty: 30 0RF ferrous gluconate 324 mg (38 mg iron) Tablet 324 mg PO BIDM Qty: 30 0RF oxycodone 5 mg Tablet 5 - 10 mg PO Q4H PRN (Reason: pain) Qty: 18 0RF Rx Instructions: 5 mg (1 tab) for pain scale 1-5 10 mg (2 tab) for pain scale 6-10 docusate sodium 100 mg Capsule 100 mg PO BID Qty: 30 0RF ascorbic acid (vitamin C) [Vitamin C] 500 mg Tablet 500 mg PO BIDM Qty: 30 0RF ondansetron 4 mg tablet,disintegrating 4 mg PO Q8H PRN (Reason: nausea and vomiting) Qty: 15 0RF Continued Metamucil Fiber Singles 3.4 gram Powder In Packet 1 packet PO QDL Qty: 0 cholecalciferol (vitamin D3) 25 mcg (1,000 unit) capsule 2,000 unit PO QPM Qty: 0 Creon 36,000-114,000- 180,000 unit capsule,delayed release(DR/EC) 1 cap PO TIDM Gemtesa 75 mg tablet 75 mg PO QPM calcium carbonate 600 mg calcium (1,500 mg) Tablet 600 mg PO QPM tadalafil [Cialis] 5 mg tablet 5 mg PO HS Held aspirin [Adult Aspirin Regimen] 81 mg tablet,delayed release (DR/EC) 81 mg PO QAM Hold Instructions: Resume on 04/09/24. Until completed with aspirin twice daily regimen Admission Data Admit Date/Time: 02/26/24 09:41 Attending Provider: Lenny Claros Admit Provider: Lenny Claros Primary Care Provider: Janette Strickland V. Other Providers: [facility],Home Healthcare Other Interventions: Discharge Summary Assessment (RN) Last Done: 02/27/24 11:37
--- NOTE | 2024-02-27 11:36 | Orthopedic Progress Note ---
Date of Service February 27, 2024 Assessment & Plan (1) Left knee DJD: Plan: Left total knee arthroplasty postop day #1 Patient had some pain overnight and difficulty sleeping which he attributes to disturbances from being in the hospital and he feels well enough to go home. Will plan for discharge as long as cleared by PT and OT. Mild anemia with a hemoglobin 11.8 and mild hypocalcemia 8.1, postoperative. Will continue iron and vitamin C as well as calcium supplementation. Weightbearing as tolerated with walker Leave dressing in place until outpatient appointment 02/28/2024 Elevation, ice, pain medication Prescriptions for oxycodone and Zofran sent to pharmacy. Discharge instructions reviewed with patient. Confirmed outpatient appointment for 02/28/2024. Admission and Anticipated Discharge Date Admission Date: February 26, 2024 Subjective Patient seen in the room this morning. He is overall doing well. States that he did not sleep very well due to the lights and bells, and did require pain medication overnight to control his pain. He also had some nausea but has not had any vomiting. He is able to move all of his toes and denies any numbness or tingling in his toes. He was able to ambulate with a walker. He states that he would prefer to go home today with home health for the next 2 weeks. Physical Exam Constitutional: Resting comfortably in bed, pleasant Cardiovascular: Left DP and PT pulses 2+ Musculoskeletal: Left lower extremity: Dressing is in place from the ankle into the thigh. Toes are warm and well-perfused. Able to move all toes. Able to perform a straight leg raise. Strength 5 out of 5 with resisted ankle plantarflexion, dorsiflexion, eversion, and inversion Neurologic: No sensory deficits in left toes to light touch Results & Data Vital Signs (Past 12 Hours) Vital Signs Temp Pulse Resp BP Pulse Ox O2 Del Method 02/27/24 07:30 98.6 F 72 20 134/78 98 Room Air 02/27/24 04:12 97.7 F 74 16 120/67 97 Room Air 02/27/24 00:00 97.7 F 58 L 16 104/63 95 Room Air Laboratory Results 02/27/24 06:18 WBC 7.95 RBC 3.97 L Hgb 11.8 L Hct 36.4 L MCV 91.7 MCH 29.7 MCHC 32.4 RDW Std Deviation 46.4 H RDW Coeff of Noah 13.8 Plt Count 167 MPV 10.7 Sodium 144 Potassium 4.5 Chloride 107 Carbon Dioxide 33 H Anion Gap 4 BUN 14 Creatinine 0.91 Est Cr Clr Drug Dosing 79.7 eGFR 86.81 BUN/Creatinine Ratio 15.4 Glucose 97 Calcium 8.1 L Diagnostic Findings XR knee LT 1 or 2V routine CLINICAL HISTORY: Postoperative evaluation COMPARISON: Left knee radiographs November 22, 2021. FINDINGS: Alignment of the total left knee arthroplasty is anatomic. There is no periprosthetic fracture or unexpected radiopaque foreign body. IMPRESSION: Expected findings following total left knee arthroplasty. (1) Left knee DJD Osteoarthritis type: primary Qualified Code(s): M17.12 - Unilateral primary osteoarthritis, left knee
[2024-02-27 11:38] VITALS: PULSE 64
== END 2024-02-27 11:53 | disposition home health service (06) ==
LOC: 3E 05:11 → ASU 05:11